=== PATIENT | female | born 1935 | race Caucasian/White ===

== ENCOUNTER 2018-09-14 03:17 | Inpatient (IN) | payer OTHER ==
[~2018-09-14] VITALS: Ht 149.9 cm; Wt 53.5 kg
[2018-09-14 03:17] VITALS: BP_SYST 146
[~2018-09-14 03:17] MED LIST: AMLO5TAB4 PO; DOXY-168 PO; GLUXR500 PO; SIMV40TA2 PO
[2018-09-14] MEDS ORDERED: NS 500 ML IV ONE (03:30)
[2018-09-14] MEDS ORDERED: CHOL500013 PO (03:41)
[2018-09-14] MEDS ORDERED: FOLI-43 PO (03:42)
[2018-09-14] MEDS: MORPHINE 4 MG/ML INJ. SYRINGE IVP ONE ×2 (03:45→04:31)
[2018-09-14] MEDS ORDERED: ONDANSETRON HCL 4 MG/2 ML VIAL IVP ONE (03:45)
[2018-09-14 04:13] LABS: HEMATOCRIT 41.4 % (36-48); HEMOGLOBIN 13.7 g/dL (12.0-16.0); MEAN CORPUSCULAR VOLUME 92 fL (79.0-98.0); RED BLOOD CELL COUNT(AUTO) 4.49 MIL/uL (4.2-6.2); WHITE BLOOD COUNT (AUTO) 10.2 K/uL (4.8-10.8)
[2018-09-14 04:14] LABS: BASOPHILS # (AUTO) 0.1 K/uL (0.0-0.2); BASOPHILS % (AUTO) 0.5 % (0.0-2.0); EOSINOPHILS # (AUTO) 0.3 K/uL (0.0-0.4); EOSINOPHILS % (AUTO) 3.3 % (0.0-4.0); LYMPHOCYTES # (AUTO) 3.9 K/uL (1.0-5.5); LYMPHOCYTES % (AUTO) 38.3 % (20.5-51.5); MEAN CORPUSCULAR HEMOGLOBIN 31 pg (27-31); MEAN CORPUSCULAR HGB CONC 33 % (32-36); MONOCYTES # (AUTO) 1.2 K/uL (0.0-1.0); MONOCYTES % (AUTO) 11.7 % (1.7-9.3); NEUTROPHILS # (AUTO) 4.7 K/uL (1.8-7.7); NEUTROPHILS % (AUTO) 46.2 % (40.0-70.0); PLATELET COUNT (AUTO) 365 K/uL (130-430); RED CELL DISTRIBUTION WIDTH 13.6 % (9.0-15.0)
[2018-09-14 04:17] LABS: PROTHROMBIN TIME 9.8 SECS (9.5-12.5)
[2018-09-14 04:19] LABS: ANION GAP 11 (5-15); CALCIUM 10.8 mg/dL (8.4-11.0); CHLORIDE 104 mmol/L (98-107); CREATININE 0.94 mg/dL (0.55-1.30); GLUCOSE 149 mg/dL (70-99); POTASSIUM 3.9 mmol/L (3.5-5.1); SODIUM SERUM 139 mmol/L (136-145); UREA NITROGEN, BLOOD 16 mg/dL (8-21)
[2018-09-14 04:20] LABS: ASPARTATE AMINOTRANSFERASE 29 U/L (10-37); TOTAL BILIRUBIN 0.3 mg/dL (0.0-1.0)
[2018-09-14 04:21] LABS: ALANINE AMINOTRANSFERASE 31 U/L (12-78); ALBUMIN 3.6 g/dL (3.4-4.8)
[2018-09-14 05:08] LABS: CLARITY/URINE CLEAR (CLEAR); COLOR,URINE YELLOW (YELLOW)
[2018-09-14 05:09] LABS: BILIRUBIN,URINE NEGATIVE (NEGATIVE); BLOOD, URINE TRACE (NEGATIVE); GLUCOSE,URINE NEGATIVE (NEGATIVE); KETONES,URINE NEGATIVE (NEGATIVE); LEUKOCYTE ESTERASE ,URINE NEGATIVE (NEGATIVE); NITRITE, URINE NEGATIVE (NEGATIVE); PROTEIN URINE NEGATIVE (NEGATIVE); UROBILINOGEN,URINE 0.2 (0.2-1.0)
[2018-09-14 05:13] LABS: WBC,URINE 0-3 /HPF (0-3)
[2018-09-14 05:14] LABS: BACTERIA,URINE FEW /HPF (None Seen)
[2018-09-14] MEDS ORDERED: MECLIZINE HCL 25 MG TABLET (ANITVERT) PO ONE (06:15)
[2018-09-14] MEDS ORDERED: metroNIDAZOLE 500 mg/NS 100 ML IV ONE (06:15)
[2018-09-14] MEDS ORDERED: NACL 0.9% 1,000 ML IV SCH (06:50)
[2018-09-14] MEDS ORDERED: HYDROcodone/ACETAMIN 10-325 MG TAB PO PRN (07:00)
[2018-09-14] MEDS ORDERED: ONDANSETRON HCL 4 MG/2 ML VIAL IVP PRN (07:00)
[2018-09-14] MEDS ORDERED: HYDROcodone/ACETAMIN 5-325 MG TAB (NORCO/ VICODIN) PO PRN (07:00)
[2018-09-14] MEDS ORDERED: LORazepam 2 MG/ML VIAL IVP PRN (07:00)
[2018-09-14] MEDS ORDERED: MORPHINE 4 MG/ML INJ. SYRINGE IVP PRN (07:00)
[2018-09-14] MEDS ORDERED: ACETAMINOPHEN 325 MG TABLET PO PRN (07:00)
[2018-09-14 07:01] VITALS: BP_SYST 121
[2018-09-14] MEDS: CHOLECALCIFEROL (VITAMIN D3) 2,000 UNIT TABLET PO SCH (09:00)
[2018-09-14] MEDS: amLODIPine BESYLATE 5 MG TABLET PO SCH (09:00)
[2018-09-14] MEDS: FOLIC ACID 1 MG TABLET PO SCH (09:00)
[2018-09-14] MEDS: SIMVASTATIN 40 MG TABLET PO SCH (09:00)
[2018-09-14] MEDS: LEVOFLOXACIN 500 MG/D5W 100 ML IV SCH (09:53)
[2018-09-14] MEDS: KCL 10 mEq in D5/0.45NS 1000mL 1,000 ML IV SCH (09:53)
[2018-09-14 11:43] VITALS: BP_SYST 142
[2018-09-14] MEDS: NORMAL SALINE 5 ML DISP.SYRIN IVF SCH ×2 (13:37→22:06)
[2018-09-14] MEDS: metroNIDAZOLE 500 mg/NS 100 ML IV SCH ×2 (13:37→22:06)
[2018-09-14 15:38] VITALS: BP_SYST 117
[2018-09-14 19:30] VITALS: BP_SYST 107
[2018-09-14 23:59] VITALS: BP_SYST 108
[2018-09-15] MEDS: KCL 10 mEq in D5/0.45NS 1000mL 1,000 ML IV SCH ×2 (00:36→20:13)
[2018-09-15] MEDS: metroNIDAZOLE 500 mg/NS 100 ML IV SCH ×3 (05:42→21:52)
[2018-09-15] MEDS: NORMAL SALINE 5 ML DISP.SYRIN IVF SCH (05:42)
[2018-09-15 08:00] VITALS: BP_SYST 142
[2018-09-15] MEDS: LEVOFLOXACIN 500 MG/D5W 100 ML IV SCH (08:26)
[2018-09-15] MEDS: CHOLECALCIFEROL (VITAMIN D3) 2,000 UNIT TABLET PO SCH (08:27)
[2018-09-15] MEDS: FOLIC ACID 1 MG TABLET PO SCH (08:27)
[2018-09-15] MEDS: amLODIPine BESYLATE 5 MG TABLET PO SCH (08:27)
[2018-09-15] MEDS: SIMVASTATIN 40 MG TABLET PO SCH (08:27)
[2018-09-15 08:54] LABS: BASOPHILS % (AUTO) 0.7 % (0.0-2.0); EOSINOPHILS % (AUTO) 3.2 % (0.0-4.0); HEMATOCRIT 38.9 % (36-48); HEMOGLOBIN 12.7 g/dL (12.0-16.0); LYMPHOCYTES # (AUTO) 3.1 K/uL (1.0-5.5); MEAN CORPUSCULAR HEMOGLOBIN 30 pg (27-31); MEAN CORPUSCULAR HGB CONC 33 % (32-36); MEAN CORPUSCULAR VOLUME 93 fL (79.0-98.0); MONOCYTES % (AUTO) 12.1 % (1.7-9.3); NEUTROPHILS # (AUTO) 2.9 K/uL (1.8-7.7); PLATELET COUNT (AUTO) 345 K/uL (130-430); RED BLOOD CELL COUNT(AUTO) 4.19 MIL/uL (4.2-6.2); RED CELL DISTRIBUTION WIDTH 14.2 % (9.0-15.0)
[2018-09-15 08:55] LABS: EOSINOPHILS # (AUTO) 0.2 K/uL (0.0-0.4); MONOCYTES # (AUTO) 0.8 K/uL (0.0-1.0)
[2018-09-15 09:22] LABS: ANION GAP 7 (5-15); CALCIUM 10.3 mg/dL (8.4-11.0); CHLORIDE 107 mmol/L (98-107); GLUCOSE 147 mg/dL (70-99); POTASSIUM 4.5 mmol/L (3.5-5.1); SODIUM SERUM 139 mmol/L (136-145)
[2018-09-15 09:23] LABS: CREATININE 1.04 mg/dL (0.55-1.30); TOTAL BILIRUBIN 0.3 mg/dL (0.0-1.0); UREA NITROGEN, BLOOD 12 mg/dL (8-21)
[2018-09-15 09:26] LABS: ALANINE AMINOTRANSFERASE 29 U/L (12-78); AMYLASE 46 U/L (0-100); ASPARTATE AMINOTRANSFERASE 35 U/L (10-37); LIPASE 160 U/L (73-393)
[2018-09-15 11:34] VITALS: BP_SYST 122
[2018-09-15] MEDS ORDERED: BISACODYL 5 MG TABLET.DR (DULCOLAX) PO ONE (14:00)
[2018-09-15 15:26] VITALS: BP_SYST 118
[2018-09-15] MEDS ORDERED: GOLYTELY / COLYTE SOLUTION 4 LITERS PO ONE (16:00)
[2018-09-15 20:00] VITALS: BP_SYST 140
[2018-09-16] MEDS: metroNIDAZOLE 500 mg/NS 100 ML IV SCH ×3 (05:04→21:08)
[2018-09-16 08:01] VITALS: BP_SYST 141
[2018-09-16] MEDS: LEVOFLOXACIN 500 MG/D5W 100 ML IV SCH (08:09)
[2018-09-16 08:38] LABS: PROTHROMBIN TIME 10.1 SECS (9.5-12.5)
[2018-09-16 08:44] LABS: ANION GAP 12 (5-15); CHLORIDE 108 mmol/L (98-107); GLUCOSE 154 mg/dL (70-99); SODIUM SERUM 143 mmol/L (136-145)
[2018-09-16 08:45] LABS: CALCIUM 10.2 mg/dL (8.4-11.0); CREATININE 0.81 mg/dL (0.55-1.30); UREA NITROGEN, BLOOD 6 mg/dL (8-21)
[2018-09-16] MEDS: SIMVASTATIN 40 MG TABLET PO SCH (09:00)
[2018-09-16] MEDS: amLODIPine BESYLATE 5 MG TABLET PO SCH (09:00)
[2018-09-16] MEDS: CHOLECALCIFEROL (VITAMIN D3) 2,000 UNIT TABLET PO SCH (09:00)
[2018-09-16] MEDS: FOLIC ACID 1 MG TABLET PO SCH (09:00)
[2018-09-16 09:19] LABS: TOTAL BILIRUBIN 0.3 mg/dL (0.0-1.0)
[2018-09-16 09:20] LABS: ALANINE AMINOTRANSFERASE 38 U/L (12-78); ALBUMIN 3.1 g/dL (3.4-4.8); ASPARTATE AMINOTRANSFERASE 41 U/L (10-37)
[2018-09-16 09:48] LABS: HEMATOCRIT 41.1 % (36-48); HEMOGLOBIN 13.3 g/dL (12.0-16.0); MEAN CORPUSCULAR HEMOGLOBIN 30 pg (27-31); MEAN CORPUSCULAR HGB CONC 32 % (32-36); MEAN CORPUSCULAR VOLUME 94 fL (79.0-98.0); PLATELET COUNT (AUTO) 371 K/uL (130-430); RED BLOOD CELL COUNT(AUTO) 4.38 MIL/uL (4.2-6.2); RED CELL DISTRIBUTION WIDTH 13.8 % (9.0-15.0); WHITE BLOOD COUNT (AUTO) 7.3 K/uL (4.8-10.8)
[2018-09-16 11:06] LABS: ERYTHROCYTE SEDIMENTATION RATE 28 MM/HR (0-20)
[2018-09-16] MEDS ORDERED: MEPERIDINE HCL/PF 25 MG/ML DISP.SYRIN ONE (11:15)
[2018-09-16] MEDS ORDERED: SIMETHICONE 40 MG/0.6 ML ML ONE (11:15)
[2018-09-16] MEDS ORDERED: MIDAZOLAM HCL 5 MG/5 ML VIAL ONE (11:16)
[2018-09-16 12:24] VITALS: BP_SYST 123
[2018-09-16 12:59] LABS: C-REACTIVE PROTEIN QUANT 0.3 mg/dL (0-0.5)
[2018-09-16] MEDS: KCL 10 mEq in D5/0.45NS 1000mL 1,000 ML IV SCH (14:55)
[2018-09-16 15:39] LABS: BASOPHILS % (MANUAL) 0 % (0-2); EOSINOPHILS % (MANUAL) 4 % (0-7); LYMPHOCYTES % (MANUAL) 35 % (20-46); MONOCYTES % (MANUAL) 8 % (0-11)
[2018-09-16 16:56] VITALS: BP_SYST 136
[2018-09-16 20:00] VITALS: BP_SYST 133
[2018-09-17] MEDS: KCL 10 mEq in D5/0.45NS 1000mL 1,000 ML IV SCH ×2 (02:40→08:51)
[2018-09-17 03:03] VITALS: BP_SYST 130
[2018-09-17] MEDS: metroNIDAZOLE 500 mg/NS 100 ML IV SCH (05:27)
[2018-09-17 08:08] LABS: ANION GAP 7 (5-15); C-REACTIVE PROTEIN QUANT 0.4 mg/dL (0-0.5); CHLORIDE 109 mmol/L (98-107); CREATININE 0.98 mg/dL (0.55-1.30); GLUCOSE 138 mg/dL (70-99); POTASSIUM 4.3 mmol/L (3.5-5.1); SODIUM SERUM 139 mmol/L (136-145); UREA NITROGEN, BLOOD 9 mg/dL (8-21)
[2018-09-17 08:42] VITALS: BP_SYST 139
[2018-09-17] MEDS: CHOLECALCIFEROL (VITAMIN D3) 2,000 UNIT TABLET PO SCH (08:49)
[2018-09-17] MEDS: SIMVASTATIN 40 MG TABLET PO SCH (08:49)
[2018-09-17] MEDS: FOLIC ACID 1 MG TABLET PO SCH (08:49)
[2018-09-17] MEDS: amLODIPine BESYLATE 5 MG TABLET PO SCH (08:50)
[2018-09-17 09:57] LABS: HEMATOCRIT 37.4 % (36-48); HEMOGLOBIN 12.4 g/dL (12.0-16.0); RED BLOOD CELL COUNT(AUTO) 4.07 MIL/uL (4.2-6.2); WHITE BLOOD COUNT (AUTO) 8.3 K/uL (4.8-10.8)
[2018-09-17 09:58] LABS: BASOPHILS % (AUTO) 0.7 % (0.0-2.0); EOSINOPHILS % (AUTO) 3.2 % (0.0-4.0); LYMPHOCYTES # (AUTO) 3.1 K/uL (1.0-5.5); LYMPHOCYTES % (AUTO) 37.7 % (20.5-51.5); MEAN CORPUSCULAR HEMOGLOBIN 31 pg (27-31); MEAN CORPUSCULAR HGB CONC 33 % (32-36); MEAN CORPUSCULAR VOLUME 92 fL (79.0-98.0); MONOCYTES % (AUTO) 11.8 % (1.7-9.3); NEUTROPHILS # (AUTO) 3.8 K/uL (1.8-7.7); NEUTROPHILS % (AUTO) 46.6 % (40.0-70.0); PLATELET COUNT (AUTO) 381 K/uL (130-430); RED CELL DISTRIBUTION WIDTH 13.6 % (9.0-15.0)
[2018-09-17 09:59] LABS: BASOPHILS # (AUTO) 0.1 K/uL (0.0-0.2); EOSINOPHILS # (AUTO) 0.3 K/uL (0.0-0.4)
[2018-09-17 11:40] LABS: ERYTHROCYTE SEDIMENTATION RATE 60 MM/HR (0-20)
[2018-09-17 12:56] VITALS: BP_SYST 134
[2018-09-17 13:24] VITALS: BP_SYST 134
== END 2018-09-17 15:50 | disposition home or self-care (01) | DRG 244 ==
LOC: SED 03:17 → SMU 06:44
PROVIDERS: ADMIT Preventive Medicine Preventive Medicine/Occupational Environmental Medicine; ATTEND Preventive Medicine Preventive Medicine/Occupational Environmental Medicine
PROC: 0DBL8ZX Excision of Transverse Colon, Via Natural or Artificial Opening Endoscopic, Diagnostic (ICD-10-PCS; 2018-09-16)
PROC: 0DBM8ZX Excision of Descending Colon, Via Natural or Artificial Opening Endoscopic, Diagnostic (ICD-10-PCS; principal; 2018-09-16 13:00)
DX: K57.30 Diverticulosis of large intestine without perforation or abscess without bleeding (principal); E11.65 Type 2 diabetes mellitus with hyperglycemia; D72.829 Elevated white blood cell count, unspecified; N20.0 Calculus of kidney; E66.9 Obesity, unspecified; E78.5 Hyperlipidemia, unspecified; I10 Essential (primary) hypertension; K63.5 Polyp of colon; K59.00 Constipation, unspecified; K64.8 Other hemorrhoids; Z88.6 Allergy status to analgesic agent; Z88.8 Allergy status to other drugs, medicaments and biological substances; Z90.49 Acquired absence of other specified parts of digestive tract; Z79.899 Other long term (current) drug therapy; Z68.23 Body mass index [BMI] 23.0-23.9, adult
CPT/HCPCS: 36415; 45385; 70450-TC; 71045; 80048; 80053; 81000-TC; 82150-TC; 83605; 83690-TC; 84484; 85007; 85025; 85027; 85610-TC; 85651-TC; 85730-TC; 86140; 87040-TC; 87086; 88305; 93005; 96365; 96375; 99285; J1956; J2175; J2250; J2270; J2405; J3490; J8597

== ENCOUNTER 2020-10-30 19:35 | Emergency (ER) | payer OTHER ==
[~2020-10-30] VITALS: Ht 149.9 cm; Wt 53.5 kg
[~2020-10-30 19:35] MED LIST changes: +CHOL500013 PO; -DOXY-168 PO; +FOLI-43 PO
[2020-10-30 19:53] VITALS: BP_SYST 103
[2020-10-30] MEDS ORDERED: MORPHINE 2 MG/ML INJ. SYRINGE IVP ONE (20:15)
[2020-10-30] MEDS ORDERED: LEVOFLOXACIN 500 MG/D5W 100 ML IV ONE (20:15)
[2020-10-30] MEDS ORDERED: NS 500 ML IV ONE (20:15)
[2020-10-30] MEDS ORDERED: CIPR-211 PO (20:34)
[2020-10-30] MEDS ORDERED: ACET-2634 PO (20:34)
[2020-10-30 22:03] VITALS: BP_SYST 122
== END 2020-10-30 22:03 | disposition home or self-care (01) ==
LOC: SED 19:35
DX: N39.0 Urinary tract infection, site not specified (principal); R10.31 Right lower quadrant pain
CPT/HCPCS: 36415; 87040; 96365; 96375; 99284; J7040

== ENCOUNTER 2022-08-23 17:33 | Emergency (ER) | payer OTHER ==
[~2022-08-23] VITALS: Ht 144.8 cm; Wt 52.2 kg
[~2022-08-23 17:33] MED LIST changes: +ACET-2634 PO; +CIPR500T5 PO
[2022-08-23 17:51] VITALS: BP_SYST 131
[2022-08-23 19:35] VITALS: BP_SYST 131
== END 2022-08-23 19:35 | disposition home or self-care (01) ==
LOC: SED 17:33
DX: R60.0 Localized edema (principal); I10 Essential (primary) hypertension; E11.9 Type 2 diabetes mellitus without complications; Z88.8 Allergy status to other drugs, medicaments and biological substances; Z79.899 Other long term (current) drug therapy
CPT/HCPCS: 93005; 99283